=== PATIENT | male | born 1935 | race Caucasian/White ===

== ENCOUNTER → 2016-10-01 | Outpatient (CLI) | payer OTHER ==
[~2016-10-01] MED LIST: ASPI-496 PO; FINA5TAB4 PO; HYDR-3240 PO; LEVO100T5 PO; METO25TA91 PO; OMEP-110 PO; PRAV40TA2 PO; RANI150C PO; SIMV20TA3 PO; TADA5TAB2 PO; TAMS0.4C2 PO
== END | disposition home or self-care (01) ==
LOC: CVU 06:45
PROVIDERS: ATTEND Surgery Vascular Surgery
DX: I72.3 Aneurysm of iliac artery (principal); I21.3 ST elevation (STEMI) myocardial infarction of unspecified site; I71.4 Abdominal aortic aneurysm, without rupture
CPT/HCPCS: 93978